=== PATIENT | female | born 1955 | race Native Hawaiian/Other Pacific Islander ===

== ENCOUNTER 2018-06-21 18:01 | Emergency (ER) | payer OTHER ==
[2018-06-21 18:14] VITALS: O2SAT 98; BMI 32.8
[2018-06-21] MEDS ORDERED: Sodium Chloride 0.9% 1,000 ML IV ONE (18:32)
[2018-06-21 18:33] VITALS: TEMP 98.1
[2018-06-21 18:40] LABS: BASO # 0.1 K/uL (0.0-0.2); BASO % 0.8 % (0.0-2.0); EOS # 0.3 K/uL (0.0-0.7); EOS % 3.1 % (0.0-4.0); LYMPH # 2.6 K/uL (1.0-4.3); LYMPH % 31.5 % (20.0-40.0); MEAN CELL VOLUME 82.9 fL (81.0-99.0); MEAN CORPUSCULAR HEMOGLOBIN 27.5 pg (27.0-31.0); MEAN CORPUSCULAR HGB CONC 33.2 g/dL (33.0-37.0); MEAN PLATELET VOLUME 6.3 fL (7.2-11.7); MONO % 11.8 % (0.0-10.0); NEUT # 4.3 K/uL (1.8-7.0); NEUT % 52.8 % (50.0-75.0); RBC 4.7 Mil/uL (3.80-5.20); RED CELL DISTRIBUTION WIDTH 13.9 % (11.5-14.5); WHITE BLOOD COUNT 8.2 K/uL (4.8-10.8)
[2018-06-21 18:52] LABS: ALB/GLOB RATIO 1.2 (1.0-2.1); ALBUMIN 4.2 g/dL (3.5-5.0); BLOOD UREA NITROGEN 17 mg/dL (7-17); CALCIUM 9.3 mg/dl (8.6-10.4); GFR NON-AFRICAN AMERICAN 45
[2018-06-21 18:57] LABS: ALT/SGPT 37 U/L (9-52); AST/SGOT 41 U/L (14-36)
[2018-06-21 19:04] LABS: B-TYPE NATRIURETIC PEPTIDE 229 pg/mL (0-900)
--- NOTE | 2018-06-21 19:40 | C.PDOC ---
History Of Present Illness 63 y/o female pt presents to the ER c/o mild dizziness and headache for x1 day. Associated sx includes cough with clear sputum and pain worse with movement. Pt denies fever, chills and chest pain. She notes that sx feels better when she is lying down. Time Seen by Provider: 06/21/18 18:28 Chief Complaint (Nursing): Dizziness/Lightheaded History Per: Patient History/Exam Limitations: no limitations Onset/Duration Of Symptoms: Days (x1) Current Symptoms Are (Timing): Still Present Past Medical History Reviewed: Historical Data, Nursing Documentation, Vital Signs Vital Signs: Last Vital Signs Temp 98.1 F 06/21/18 18:32 Pulse 89 06/21/18 18:32 Resp 17 06/21/18 18:32 BP 188/83 H 06/21/18 18:32 Pulse Ox 98 06/21/18 18:32 - Medical History PMH: Asthma, HTN Family History: States: No Known Family Hx - Social History Hx Alcohol Use: No Hx Substance Use: No - Immunization History Hx Tetanus Toxoid Vaccination: No Hx Influenza Vaccination: Yes Hx Pneumococcal Vaccination: No Review Of Systems Except As Marked, All Systems Reviewed And Found Negative. Respiratory: Positive for: Cough (with clear sputum ) Neurological: Positive for: Headache, Dizziness Physical Exam - Physical Exam Appears: Non-toxic, No Acute Distress Skin: Normal Color, Warm, Dry Head: Atraumatic, Normacephalic Eye(s): bilateral: Normal Inspection, PERRL, EOMI Nose: Normal Oral Mucosa: Moist Chest: Symmetrical Cardiovascular: Rhythm Regular, No Murmur Respiratory: Normal Breath Sounds, No Rales, No Rhonchi, No Wheezing Gastrointestinal/Abdominal: Normal Exam, Soft, No Tenderness Extremity: Normal ROM Extremity: Bilateral: Atraumatic, Normal Color And Temperature Neurological/Psych: Oriented x3, Normal Speech ED Course And Treatment - Laboratory Results Result Diagrams: 06/21/18 18:37 06/21/18 18:37 Lab Results: Troponin I < 0.0120 ng/mL (0.00-0.120) 06/21/18 18:37 NT-Pro-B Natriuret Pep 229 pg/mL (0-900) 06/21/18 18:37 Total Bilirubin 0.8 mg/dL (0.2-1.3) 06/21/18 18:37 AST 41 U/L (14-36) H D 06/21/18 18:37 ALT 37 U/L (9-52) 06/21/18 18:37 Alkaline Phosphatase 75 U/L (38-126) 06/21/18 18:37 Total Protein 7.5 g/dL (6.3-8.3) 06/21/18 18:37 Albumin 4.2 g/dL (3.5-5.0) 06/21/18 18:37 Globulin 3.3 gm/dL (2.2-3.9) 06/21/18 18:37 Albumin/Globulin Ratio 1.2 (1.0-2.1) 06/21/18 18:37 ECG: Interpreted By Me, Viewed By Me ECG Rhythm: Sinus Rhythm ECG Interpretation: Normal Interpretation Of ECG: normal interval, normal axis, no ST/T wave abnormality Rate From EC O2 Sat by Pulse Oximetry: 98 (RA) Pulse Ox Interpretation: Normal - CT Scan/US CT head Other Rad Studies (CT/US): Read By Radiologist, Radiology Report Reviewed CT/US Interpretation: Name:JAJA VIERA Exam Date:Jun 21, 2018 8:03:56 PM EDT. Modality Type:CT. Description:CT - BRAIN. Gender:F Laterality:Not applicable. :53 Referring Physician:Jason Smith). EXAM: CT Head without Intravenous Contrast. CLINICAL HISTORY: Headache dizziness. TECHNIQUE: Axial computed tomography images of the head/brain without intravenous contrast. 0.00 mGy-cm. COMPARISON: None provided. FINDINGS: BRAIN. Chronic periventricular and subcortical microvascular disease is seen. VENTRICLES: There is generalized parenchymal atrophy noted as demonstrated by symmetrical dilatation of ventricles and sulci. ORBITS: The orbits are unremarkable. SINUSES AND MASTOIDS: The paranasal sinuses and mastoid air cells are clear. BONES: No fracture. SOFT TISSUES: Unremarkable. MISCELLANEOUS: No acute intracranial pathology. IMPRESSION: 1. There is generalized parenchymal atrophy noted as demonstrated by symmetrical dilatation of ventricles and sulci. 2. Chronic periventricular and subcortical microvascular disease is seen. 3. No acute intracranial pathology. . Electronically signed on Jun 21, 2018 8:11:51 PM EDT by: Dakotah Story M.D., BRITNEY Certified By ABR & CBC[employer]. Fellowship Trained MRI and CT Specialist Medical Decision Making Medical Decision Making: Assessment: dizziness and viral illness plans: -- chem labs -- blood work -- EKG -- CT head -- CXR -- IV fluids -- antivert -- Sudafed 2019 - patient states improvement. Will discharge home to follow up with pmd within 2 days Disposition Counseled Patient/Family Regarding: Studies Performed, Diagnosis, Need For Followup, Rx Given - Disposition Referrals: Radha Russell MD [Staff Provider] - Disposition: HOME/ ROUTINE Disposition Time: 20:21 Condition: STABLE Additional Instructions: follow up with your doctor within 2 days call to make an appointment take medication as prescribed return to ER if symptoms worsens or progress Prescriptions: Azithromycin [Zithromax] 250 mg PO DAILY #4 tab hydrALAZINE [Apresoline] 25 mg PO BID #40 tab Losartan [Cozaar] 100 mg PO DAILY #20 tab Meclizine [Meclizine*] 25 mg PO TID PRN #15 tab PRN Reason: Dizziness Metoprolol Succinate 25 mg PO BID #40 tab.er.24h Instructions: Vertigo (a Type of Dizziness) (DC), Acute Bronchitis Forms: [facility] (Khmer), General Discharge Instructions - Clinical Impression Clinical Impression: Dizziness, Bronchitis - Scribe Statement The provider has reviewed the documentation as recorded by the Scribe Clarita Osborn Provider Attestation: All medical record entries made by the Scribe were at my direction and personally dictated by me. I have reviewed the chart and agree that the record accurately reflects my personal performance of the history, physical exam, medical decision making, and the department course for this patient. I have also personally directed, reviewed, and agree with the discharge instructions and disposition.
[2018-06-21 19:49] VITALS: BP 185/92; PULSE 66; RESP 18
[2018-06-21 19:56] LABS: SQUAMOUS EPITHIAL 2 /hpf (0-5); URINE BILIRUBIN NEGATIVE (NEGATIVE); URINE BLOOD 1+ (NEGATIVE); URINE CLARITY Clear (Clear); URINE COLOR Straw (YELLOW); URINE GLUCOSE (UA) NORMAL (Normal); URINE LEUKOCYTE ESTERASE NEG Leu/uL (Negative); URINE PROTEIN NEGATIVE (NEGATIVE); URINE UROBILINOGEN NORMAL mg/dL (0.2-1.0)
--- NOTE | 2018-06-22 07:40 | CT ---
Date of service: 06/21/2018 PROCEDURE: CT HEAD WITHOUT CONTRAST. HISTORY: dizziness COMPARISON: None available. TECHNIQUE: Axial computed tomography images were obtained through the head/brain without intravenous contrast. Radiation dose: Total exam DLP = 1022.3 mGy-cm. This CT exam was performed using one or more of the following dose reduction techniques: Automated exposure control, adjustment of the mA and/or kV according to patient size, and/or use of iterative reconstruction technique. FINDINGS: HEMORRHAGE: No intracranial hemorrhage. BRAIN: No mass effect or edema. There is mild volume loss noted. [id number] white matter changes likely represent chronic microvascular ischemic disease P VENTRICLES: Unremarkable. No hydrocephalus. CALVARIUM: Unremarkable. PARANASAL SINUSES: Unremarkable as visualized. No significant inflammatory changes. MASTOID AIR CELLS: Unremarkable as visualized. No inflammatory changes. OTHER FINDINGS: None. IMPRESSION: No evidence of acute intracranial hemorrhage mass effect or midline shift. Volume loss and presumed chronic microvascular white matter ischemic disease. Preliminary report was submitted by [facility] Radiology contains concordant findings.
--- NOTE | 2018-06-22 16:12 | RAD ---
Date of service: 06/21/2018 PROCEDURE: CHEST RADIOGRAPH, 1 VIEW HISTORY: SOB COMPARISON: Comparison is made with 04/17/2017 FINDINGS: LUNGS: No evidence of new infiltrate or consolidation in the lungs. Mild atelectasis at the lung bases. Hyperinflation is of the lungs is again noted. PLEURA: No pneumothorax or pleural fluid seen. CARDIOVASCULAR: No aortic atherosclerotic calcification present. Normal. OSSEOUS STRUCTURES: No significant abnormalities. VISUALIZED UPPER ABDOMEN: Normal. OTHER FINDINGS: None. IMPRESSION: Small opacities at the lung bases likely atelectasis. Otherwise no interval changes.
--- NOTE | 2018-06-24 12:23 | CARD ---
APPROVED REPORT Date of service: 06/21/2018 EKG Measurement Heart [id number] <Conclusion> Normal sinus rhythm Normal ECG
== END 2018-06-21 20:35 | disposition home or self-care (01) ==
LOC: C.ER 18:01
DX: R42 Dizziness and giddiness (principal); J40 Bronchitis, not specified as acute or chronic
CPT/HCPCS: 70450; 71045; 80053; 81001; 83880; 84484; 85025; 93005; 99285; J7030

== ENCOUNTER 2018-08-06 09:43 | Outpatient (CLI) | payer OTHER | END 2018-08-06 09:44 | disposition home or self-care (01) | LOC: C.MAMMO 09:43 | DX: Z12.31 Encounter for screening mammogram for malignant neoplasm of breast (principal) ==